=== PATIENT | male | born 1960 | race Caucasian/White ===

== ENCOUNTER 2017-06-23 15:42 | Inpatient (IN) | payer OTHER ==
[~2017-06-23] VITALS: Ht 185.4 cm; Wt 76.7 kg
[2017-06-23 16:47] LABS: Basophils # (auto) 0 uL; Basophils % (auto) 0.5 % (0.0-2.0); CONDITION Y; Eosinophils # (auto) 0.1 uL; Eosinophils % (auto) 0.7 % (0.0-7.0); Hematocrit 42.5 % (41.0-53.0); Hemoglobin 14.7 g/dL (13.5-17.5); Lymphocytes # (auto) 1.3 uL; Lymphocytes % (auto) 18.3 % (10.0-50.0); Mean Corpuscular Hemoglobin 32.9 pg (28.0-32.0); Mean Corpuscular Hgb Conc. 34.6 g/dL (32.0-36.0); Mean Corpuscular Volume 95.2 fL (80.0-100.0); Mean Platelet Volume 7.8 fL (7.4-10.4); Monocytes # (auto) 0.7 uL; Monocytes % (auto) 10.3 % (0.0-12.0); Neutrophils % (auto) 70.2 % (37.0-80.0); Platelet Count (auto) 231 10^3/uL (140-450); Red Cell Distribution Width 12.7 % (11.6-16.0); White Blood Cell 7.1 10^3/uL (4.4-10.8)
[2017-06-23 17:12] LABS: Albumin 3.7 g/dL (3.4-5.0); Bilirubin, Total 0.5 mg/dL (0.2-1.0); Calcium 8.6 mg/dL (8.5-10.1); Magnesium 2.6 mg/dL (1.6-2.6); Potassium 3.8 mmol/L (3.5-5.1); Total Protein 6.8 g/dL (6.4-8.2)
[2017-06-23] MEDS ORDERED: SODIUM CHLORIDE 0.9% 1,000 ML IV ONE (19:04)
[2017-06-23] MEDS ORDERED: METOPROLOL TARTRATE 25 MG TAB PO ONE (19:15)
[2017-06-23] MEDS ORDERED: LORazepam 2MG/ML-1ML VIAL IV ONE (19:15)
[2017-06-23] MEDS ORDERED: LORazepam 0.5 MG TAB PO PRN (20:15)
[2017-06-23] MEDS ORDERED: NITROGLYCERIN 0.4 MG SL TAB SL PRN (20:15)
[2017-06-23] MEDS ORDERED: ACETAMINOPHEN 500 MG TAB PO PRN (20:15)
[2017-06-23] MEDS ORDERED: ONDANSETRON HCL 4 MG/2 ML VIAL IV PRN (20:15)
[2017-06-23] MEDS ORDERED: LACTULOSE 20Gm/30ML SOLN PO PRN (20:15)
[2017-06-23] MEDS ORDERED: MORPHINE SULF INJ 2 MG/ML SYRINGE 1ML IV PRN ×2 (20:15)
[2017-06-23] MEDS ORDERED: HYDROcodone-ACET 5/325MG TAB PO PRN (20:15)
[2017-06-23] MEDS ORDERED: TEMAZEPAM 15 MG CAP PO PRN (20:15)
[2017-06-23] MEDS: SODIUM CHLORIDE 0.9% 1,000 ML IV SCH (20:28)
[2017-06-23] MEDS ORDERED: ASPirin 81 mg TAB PO ONE (20:30)
[2017-06-23] MEDS ORDERED: TAMSULOSIN HYDROCHLORIDE 0.4 MG CAP PO ONE (20:45)
[2017-06-23 20:53] LABS: Cholesterol 166 mg/dL (< 200); HDL Cholesterol 56 mg/dL (40-59); LDL Cholesterol 103 mg/dL (< 100); Triglycerides 102 mg/dL (< 150)
[2017-06-23] MEDS: ATORVASTATIN 20 MG TAB PO SCH (22:30)
[2017-06-24] VITALS (7 sets, daily range): BP systolic 103–127; BP diastolic 60–87
[2017-06-24 06:16] LABS: BUN/Creatinine Ratio 21.3; Calcium 8.3 mg/dL (8.5-10.1); Potassium 3.7 mmol/L (3.5-5.1)
[2017-06-24 06:21] LABS: Basophils # (auto) 0 uL; Basophils % (auto) 0.4 % (0.0-2.0); CONDITION Y; Eosinophils # (auto) 0.2 uL; Eosinophils % (auto) 3.5 % (0.0-7.0); Hematocrit 39.1 % (41.0-53.0); Hemoglobin 13.4 g/dL (13.5-17.5); Lymphocytes # (auto) 2.4 uL; Lymphocytes % (auto) 39.1 % (10.0-50.0); Mean Corpuscular Hgb Conc. 34.2 g/dL (32.0-36.0); Mean Corpuscular Volume 96.5 fL (80.0-100.0); Mean Platelet Volume 8.2 fL (7.4-10.4); Monocytes # (auto) 0.6 uL; Monocytes % (auto) 9.9 % (0.0-12.0); Neutrophils # (auto) 2.9 uL; Neutrophils % (auto) 47.1 % (37.0-80.0); Platelet Count (auto) 222 10^3/uL (140-450); Red Cell Distribution Width 12.9 % (11.6-16.0); White Blood Cell 6.1 10^3/uL (4.4-10.8)
[2017-06-24] MEDS: ASPirin 81 mg TAB PO SCH (10:22)
[2017-06-24 11:53] LABS: Prothrombin Time 10.9 sec (9.37-12.3)
[2017-06-24] MEDS: SODIUM CHLORIDE 0.9% 1,000 ML IV SCH (12:12)
[2017-06-24] MEDS ORDERED: TAMSULOSIN HYDROCHLORIDE 0.4 MG CAP PO SCH (18:00)
[2017-06-24] MEDS: ATORVASTATIN 20 MG TAB PO SCH (23:24)
[2017-06-25 05:00] VITALS: BP 109/63
[2017-06-25] MEDS: SODIUM CHLORIDE 0.9% 1,000 ML IV SCH (05:52)
[2017-06-25] MEDS ORDERED: LIDOCAINE 2%HCL (LOCAL ANESTH.) INJ 20ML MDV ONE (07:33)
[2017-06-25] MEDS ORDERED: IOHEXOL 350 MG/ML 100ML IJ ONE (07:33)
[2017-06-25 07:49] VITALS: BP 112/55
[2017-06-25] MEDS ORDERED: MIDAZOLAM HCL 1MG/1ML-2 ML VIAL ONE (09:37)
[2017-06-25] MEDS ORDERED: fentaNYL CITRATE 100 MCG/2 ML VL ONE (09:37)
[2017-06-25] MEDS ORDERED: ANGIOMAX 250 MG VIAL IV ONE (09:37)
[2017-06-25] MEDS ORDERED: SODIUM CHL 0.9% 0 ML ONE (09:38)
[2017-06-25] MEDS: ASPirin 81 mg TAB PO SCH (10:00)
[2017-06-25 13:58] VITALS: BP 103/70
== END 2017-06-25 15:30 | disposition home or self-care (01) | DRG 287 ==
LOC: ER 15:46 → TELE 15:47 → TELE-EAST 23:40
PROVIDERS: ADMIT Internal Medicine; ATTEND Internal Medicine
PROC: 4A023N7 Measurement of Cardiac Sampling and Pressure, Left Heart, Percutaneous Approach (ICD-10-PCS; principal; 2017-06-25)
PROC: B2111ZZ Fluoroscopy of Multiple Coronary Arteries using Low Osmolar Contrast (ICD-10-PCS; 2017-06-25)
PROC: B2151ZZ Fluoroscopy of Left Heart using Low Osmolar Contrast (ICD-10-PCS; 2017-06-25)
DX: I47.1 Supraventricular tachycardia (principal); I10 Essential (primary) hypertension; N40.0 Benign prostatic hyperplasia without lower urinary tract symptoms; I20.9 Angina pectoris, unspecified; Z60.2 Problems related to living alone; E78.5 Hyperlipidemia, unspecified; F17.210 Nicotine dependence, cigarettes, uncomplicated; Z79.82 Long term (current) use of aspirin; Z86.73 Personal history of transient ischemic attack (TIA), and cerebral infarction without residual deficits; Z87.442 Personal history of urinary calculi
CPT/HCPCS: 36415; 71010; 80048; 80053; 80061; 82550; 83735; 84484; 85025; 85379; 85610; 85652; 86141; 93005; 93306; 93452; 96361; 96374; 99152; J2250; J2405

== ENCOUNTER → 2023-01-01 | Outpatient (CLI) | payer OTHER ==
[2023-01-01 09:50] LABS: Basophils # (auto) 0 10 ^3/uL (0-0.2); Basophils % (auto) 0.7 % (0.0-2.0); Eosinophils # (auto) 0.4 10 ^3/uL (0-0.8); Eosinophils % (auto) 8.5 % (0.0-7.0); Hemoglobin 14.8 g/dL (13.5-17.5); Lymphocytes # (auto) 1.2 10 ^3/uL (0.4-5.4); Lymphocytes % (auto) 23.3 % (10.0-50.0); Mean Corpuscular Hemoglobin 32.7 pg (28.0-32.0); Mean Corpuscular Hgb Conc. 34.4 g/dL (32.0-36.0); Mean Corpuscular Volume 94.9 fL (80.0-100.0); Monocytes # (auto) 0.5 10 ^3/uL (0-1.3); Monocytes % (auto) 10.4 % (0.0-12.0); Neutrophils # (auto) 2.9 10 ^3/uL (1.6-8.6); Neutrophils % (auto) 57.1 % (37.0-80.0); Nucleated Red Blood Cells % 0.2 %; Red Blood Cells 4.53 10^6/uL (4.5-5.90); White Blood Cell 5.1 10^3/uL (4.4-10.8)
[2023-01-01 10:08] LABS: Albumin 3.5 g/dL (3.4-5.0); Calcium 8.6 mg/dL (8.5-10.1); Potassium 4.1 mmol/L (3.5-5.1)
[2023-01-01 10:13] LABS: BUN/Creatinine Ratio 22.4; Bilirubin, Total 0.5 mg/dL (0.2-1.0); Total Protein 6.7 g/dL (6.4-8.2)
== END | disposition home or self-care (01) ==
LOC: LAB 09:13
PROVIDERS: ATTEND Internal Medicine
DX: I10 Essential (primary) hypertension (principal); E55.9 Vitamin D deficiency, unspecified; N40.0 Benign prostatic hyperplasia without lower urinary tract symptoms; E78.5 Hyperlipidemia, unspecified
CPT/HCPCS: 36415; 80053; 80061; 82306; 83036; 84153; 84443; 85025

== ENCOUNTER → 2023-03-02 | Outpatient (CLI) | payer OTHER ==
[2023-03-03 09:41] LABS: Urine Bacteria NONE SEEN /hpf (None Seen); Urine Blood 1+ /uL (Negative); Urine Mucus FEW (None Seen); Urine Specific Gravity 1.022 (1.001-1.035); Urine WBC 1 /hpf (0 - 3)
== END | disposition home or self-care (01) ==
LOC: LAB 16:07
PROVIDERS: ATTEND Urology
DX: N39.0 Urinary tract infection, site not specified (principal)
CPT/HCPCS: 81001; 87086; 87088; 87186

== ENCOUNTER → 2023-03-09 | Outpatient (CLI) | payer OTHER ==
[2023-03-09 09:11] LABS: Urine Bacteria NONE SEEN /hpf (None Seen); Urine Blood TRACE /uL (Negative); Urine Mucus FEW (None Seen); Urine Specific Gravity 1.024 (1.001-1.035); Urine WBC 1 /hpf (0 - 3)
== END | disposition home or self-care (01) ==
LOC: LAB 08:49
PROVIDERS: ATTEND Urology
DX: N39.0 Urinary tract infection, site not specified (principal)
CPT/HCPCS: 81001; 87086

== ENCOUNTER → 2023-05-19 | Outpatient (CLI) | payer OTHER ==
[~2023-05-19] VITALS: Ht 185.4 cm; Wt 72.1 kg
[~2023-05-19] MED LIST: ASPI1TAB20 PO; ATOR10TA52 PO; CHOL20007 OR; DILT-29 PO; DOCU-94 PO; DOXA1TAB84 PO; FLEC100T PO; GEMF-66 PO; MELO7.5T7 PO
== END | disposition home or self-care (01) ==
LOC: Rad HDHVI 13:23
PROVIDERS: ATTEND Internal Medicine Cardiovascular Disease
DX: Z01.810 Encounter for preprocedural cardiovascular examination (principal); I47.1 Supraventricular tachycardia; R07.89 Other chest pain; I10 Essential (primary) hypertension; E78.5 Hyperlipidemia, unspecified; R42 Dizziness and giddiness; F17.210 Nicotine dependence, cigarettes, uncomplicated; Z82.49 Family history of ischemic heart disease and other diseases of the circulatory system
CPT/HCPCS: 78452; 93017; 96374; A9500

== ENCOUNTER → 2023-06-15 | Outpatient (CLI) | payer OTHER | END | disposition home or self-care (01) | LOC: XYW 07:15 | PROVIDERS: ATTEND Urology | DX: C61 Malignant neoplasm of prostate (principal) | CPT/HCPCS: 78306; A9503 ==

== ENCOUNTER 2023-06-30 12:35 | Day surgery (SDC) | payer OTHER ==
[2023-06-28 14:53] LABS: Basophils # (auto) 0 10 ^3/uL (0-0.2); Basophils % (auto) 0.6 % (0.0-2.0); Eosinophils # (auto) 0.2 10 ^3/uL (0-0.8); Eosinophils % (auto) 3.1 % (0.0-7.0); Hematocrit 40.3 % (41.0-53.0); Hemoglobin 14.1 g/dL (13.5-17.5); Lymphocytes # (auto) 1.5 10 ^3/uL (0.4-5.4); Lymphocytes % (auto) 29.3 % (10.0-50.0); Mean Corpuscular Hemoglobin 33.1 pg (28.0-32.0); Mean Corpuscular Hgb Conc. 34.9 g/dL (32.0-36.0); Mean Corpuscular Volume 94.8 fL (80.0-100.0); Monocytes # (auto) 0.5 10 ^3/uL (0-1.3); Neutrophils # (auto) 2.9 10 ^3/uL (1.6-8.6); Nucleated Red Blood Cells % 0.2 %; Red Blood Cells 4.25 10^6/uL (4.5-5.90); White Blood Cell 5.1 10^3/uL (4.4-10.8)
[2023-06-28 15:11] LABS: INR 1.05 (0.9-1.15); Partial Thromboplastin Time 25.9 SEC (24.5-34.5)
[2023-06-28 15:15] LABS: Potassium 3.8 mmol/L (3.5-5.1)
[2023-06-28 15:20] LABS: Albumin 3.8 g/dL (3.4-5.0); Calcium 8.6 mg/dL (8.5-10.1)
[2023-06-28 15:22] LABS: Bilirubin, Total 0.6 mg/dL (0.2-1.0); Total Protein 6.9 g/dL (6.4-8.2)
[~2023-06-30] VITALS: Ht 185.4 cm; Wt 71.7 kg
[2023-06-30] MEDS ORDERED: SODIUM CHLORIDE LOCK 10 ML ONE (14:07)
[2023-06-30 15:15] VITALS: O2SAT 99
[2023-06-30] MEDS: fentaNYL CITRATE 100 MCG/2 ML VL ONE ×4 (15:20→15:38)
[2023-06-30] MEDS: diphenhdrAMINE HCL 50 MG/1 ML VL ONE ×2 (15:20→15:23)
[2023-06-30] MEDS: MIDAZOLAM HCL 5 MG/ML-1ML VIAL ONE ×3 (15:20→15:29)
[2023-06-30 15:52] VITALS: RESP 16; TEMP 98.7; O2SAT 99
[2023-06-30 16:35] VITALS: BP 141/93; PULSE 68; RESP 13; O2SAT 98
== END 2023-06-30 16:48 | disposition home or self-care (01) ==
LOC: GI 12:35
PROVIDERS: ATTEND Internal Medicine Gastroenterology
DX: R19.4 Change in bowel habit (principal); Q43.8 Other specified congenital malformations of intestine; K63.89 Other specified diseases of intestine; K64.8 Other hemorrhoids; K64.4 Residual hemorrhoidal skin tags
CPT/HCPCS: 36415; 45378; 80053; 85025; 85610; 85730; J1200; J2250; J3010; 99152; 99153

== ENCOUNTER 2023-07-29 10:08 | Emergency (ER) | payer OTHER ==
[~2023-07-29] VITALS: Ht 185.4 cm; Wt 70.0 kg
[2023-07-29 10:20] VITALS: PULSE 86; RESP 16; O2SAT 96
[2023-07-29 10:22] VITALS: BP 152/88; PULSE 86; RESP 16; O2SAT 96
[2023-07-29 10:44] LABS: Basophils # (auto) 0 10 ^3/uL (0-0.2); Basophils % (auto) 0.6 % (0.0-2.0); Eosinophils # (auto) 0.4 10 ^3/uL (0-0.8); Eosinophils % (auto) 5.9 % (0.0-7.0); Hemoglobin 14.6 g/dL (13.5-17.5); Lymphocytes # (auto) 1.3 10 ^3/uL (0.4-5.4); Lymphocytes % (auto) 19.5 % (10.0-50.0); Mean Corpuscular Hemoglobin 33.7 pg (28.0-32.0); Mean Corpuscular Hgb Conc. 35.7 g/dL (32.0-36.0); Mean Corpuscular Volume 94.5 fL (80.0-100.0); Monocytes # (auto) 0.5 10 ^3/uL (0-1.3); Monocytes % (auto) 7.9 % (0.0-12.0); Neutrophils # (auto) 4.3 10 ^3/uL (1.6-8.6); Neutrophils % (auto) 66.1 % (37.0-80.0); Red Blood Cells 4.34 10^6/uL (4.5-5.90); Red Cell Distribution Width 12.9 % (11.8-14.3); White Blood Cell 6.5 10^3/uL (4.4-10.8)
[2023-07-29 10:48] LABS: Urine Bacteria NONE SEEN /hpf (None Seen); Urine Blood TRACE /uL (Negative); Urine Clarity Clear (Clear); Urine Color Yellow (Yellow); Urine Protein, UAD Negative (Negative); Urine Specific Gravity 1.013 (1.001-1.035); Urine Urobilinogen Normal (Negative); Urine WBC 30 /hpf (0 - 3)
[2023-07-29 11:14] LABS: Alanine Aminotransferase 11 U/L (7-40); Alkaline Phosphatase 91 U/L (46-116); Anion Gap 5 (5-15); Aspartate Aminotransferase 13 U/L (13-40); BUN/Creatinine Ratio 18.4 (10.0-20.0); Blood Urea Nitrogen 14 mg/dL (9-23); Carbon Dioxide 25 mmol/L (20-30); Chloride 110 mmol/L (98-107); Glucose 112 mg/dL (74-106); Potassium 3.7 mmol/L (3.5-5.1); Sodium 140 mmol/L (136-145)
[2023-07-29 11:15] LABS: Albumin 4.3 g/dL (3.2-4.8); Bilirubin, Total 0.4 mg/dL (0.2-1.0); Total Protein 6.6 g/dL (5.7-8.2)
[2023-07-29] MEDS ORDERED: NITR-87 PO (11:35)
== END 2023-07-29 13:51 | disposition home or self-care (01) ==
LOC: EDBD 10:08 → ER 10:08
DX: H53.8 Other visual disturbances (principal); N39.0 Urinary tract infection, site not specified; R51.9 Headache, unspecified; H53.2 Diplopia; E78.5 Hyperlipidemia, unspecified; I10 Essential (primary) hypertension; Z87.442 Personal history of urinary calculi
CPT/HCPCS: 36415; 70450; 80053; 81001; 85025

== ENCOUNTER 2023-09-13 16:04 | Inpatient (IN) | payer OTHER ==
[~2023-09-13] VITALS: Ht 185.4 cm; Wt 63.5 kg
[~2023-09-13 16:04] MED LIST changes: +NITR-87 PO
[2023-09-13 16:39] LABS: Basophils # (auto) 0 10 ^3/uL (0-0.2); Basophils % (auto) 0.2 % (0.0-2.0); Eosinophils # (auto) 0 10 ^3/uL (0-0.8); Eosinophils % (auto) 0.3 % (0.0-7.0); Hematocrit 45.4 % (41.0-53.0); Hemoglobin 15.7 g/dL (13.5-17.5); Lymphocytes # (auto) 1.4 10 ^3/uL (0.4-5.4); Lymphocytes % (auto) 17.2 % (10.0-50.0); Mean Corpuscular Hemoglobin 32.7 pg (28.0-32.0); Mean Corpuscular Hgb Conc. 34.6 g/dL (32.0-36.0); Mean Corpuscular Volume 94.4 fL (80.0-100.0); Monocytes # (auto) 0.8 10 ^3/uL (0-1.3); Monocytes % (auto) 9.7 % (0.0-12.0); Neutrophils % (auto) 72.6 % (37.0-80.0); Nucleated Red Blood Cells % 0.2 %; Red Blood Cells 4.81 10^6/uL (4.5-5.90); Red Cell Distribution Width 12.7 % (11.8-14.3); White Blood Cell 8.2 10^3/uL (4.4-10.8)
[2023-09-13 16:53] LABS: INR 1.01 (0.9-1.15); Partial Thromboplastin Time 25.7 SEC (24.5-34.5); Prothrombin Time 10.6 sec (9.3-11.8)
[2023-09-13 17:11] LABS: Alanine Aminotransferase 21 U/L (7-40); Albumin 4.4 g/dL (3.2-4.8); Alkaline Phosphatase 98 U/L (46-116); Anion Gap 8 (5-15); Aspartate Aminotransferase 28 U/L (13-40); BUN/Creatinine Ratio 12.9 (10.0-20.0); Bilirubin, Total 0.8 mg/dL (0.2-1.0); Blood Urea Nitrogen 13 mg/dL (9-23); Calcium 9.7 mg/dL (8.7-10.4); Carbon Dioxide 24 mmol/L (20-30); Chloride 107 mmol/L (98-107); Glucose 100 mg/dL (74-106); Potassium 3.8 mmol/L (3.5-5.1); Sodium 139 mmol/L (136-145)
[2023-09-13] MEDS ORDERED: NITROGLYCERIN 2% OINT 1GM PKG TD ONE (18:00)
[2023-09-13] MEDS ORDERED: ASPirin-EC 81 mg tab PO ONE (18:00)
[2023-09-13 18:04] VITALS: PULSE 83; RESP 13; O2SAT 100
[2023-09-13] MEDS ORDERED: MORPHINE SULFATE 4 MG/ML SYR/VIAL IV ONE (18:15)
[2023-09-13 19:30] VITALS: PULSE 55; RESP 16; O2SAT 99
[2023-09-13] MEDS ORDERED: ENOXAPARIN SOD 80 MG/0.8ML SYRINGE SC ONE (20:00)
[2023-09-13] MEDS ORDERED: MORPHINE SULFATE INJ 2 MG/ml SYRG IV PRN (22:45)
[2023-09-13] MEDS ORDERED: NITROGLYCERIN 0.4 MG SL TAB SL PRN (22:45)
[2023-09-13] MEDS ORDERED: ONDANSETRON HCL 4 MG/2 ML VIAL IV PRN (22:45)
[2023-09-13] MEDS ORDERED: HYDROcodone-ACET 5/325MG TAB PO PRN (22:45)
[2023-09-13] MEDS ORDERED: TEMAZEPAM 15 MG CAP PO PRN (22:45)
[2023-09-13] MEDS ORDERED: ACETAMINOPHEN 325 MG TAB PO PRN (22:45)
[2023-09-14 05:26] LABS: Basophils # (auto) 0 10 ^3/uL (0-0.2); Basophils % (auto) 0.5 % (0.0-2.0); Eosinophils # (auto) 0.2 10 ^3/uL (0-0.8); Eosinophils % (auto) 2.8 % (0.0-7.0); Hematocrit 41.5 % (41.0-53.0); Hemoglobin 14.4 g/dL (13.5-17.5); Lymphocytes # (auto) 2.5 10 ^3/uL (0.4-5.4); Lymphocytes % (auto) 34.5 % (10.0-50.0); Mean Corpuscular Hemoglobin 33.1 pg (28.0-32.0); Mean Corpuscular Hgb Conc. 34.7 g/dL (32.0-36.0); Mean Corpuscular Volume 95.4 fL (80.0-100.0); Monocytes # (auto) 0.8 10 ^3/uL (0-1.3); Monocytes % (auto) 10.6 % (0.0-12.0); Neutrophils # (auto) 3.7 10 ^3/uL (1.6-8.6); Neutrophils % (auto) 51.6 % (37.0-80.0); Nucleated Red Blood Cells % 0.1 %; Red Blood Cells 4.35 10^6/uL (4.5-5.90); Red Cell Distribution Width 13.1 % (11.8-14.3); White Blood Cell 7.2 10^3/uL (4.4-10.8)
[2023-09-14 05:30] LABS: Chloride 108 mmol/L (98-107); Potassium 3.6 mmol/L (3.5-5.1); Sodium 141 mmol/L (136-145)
[2023-09-14 05:31] LABS: Anion Gap 8 (5-15); Calcium 8.7 mg/dL (8.7-10.4); Carbon Dioxide 25 mmol/L (20-30)
[2023-09-14 05:36] LABS: BUN/Creatinine Ratio 14.3 (10.0-20.0); Blood Urea Nitrogen 11 mg/dL (9-23); Glucose 83 mg/dL (74-106)
[2023-09-14 05:47] LABS: Urine Bacteria NONE SEEN /hpf (None Seen); Urine Blood 3+ /uL (Negative); Urine Clarity Clear (Clear); Urine Color PINK (Yellow); Urine Protein, UAD 1+ (Negative); Urine Specific Gravity 1.034 (1.001-1.035); Urine Urobilinogen Normal (Negative); Urine WBC 5 /hpf (0 - 3); Urine pH 7.5 (5.0-8.0)
[2023-09-14 08:00] VITALS: PULSE 52; RESP 14; O2SAT 98
[2023-09-14 08:36] LABS: Triglycerides 74 mg/dL (< 150)
[2023-09-14 08:37] LABS: LDL Cholesterol 94 mg/dL (< 100)
[2023-09-14 08:38] LABS: Cholesterol 170 mg/dL (< 200); HDL Cholesterol 61 mg/dL (40-59)
[2023-09-14] MEDS ORDERED: ASPirin 81 mg TAB PO SCH (10:00)
[2023-09-14] MEDS ORDERED: PANTOPRAZOLE 40 MG/10 ML VIAL INJ IV SCH (10:00)
[2023-09-14] MEDS: ENOXAPARIN SOD 40 MG/0.4 ML SYRINGE SC SCH (10:32)
[2023-09-14] MEDS: ASPirin 81 mg TAB PO SCH (10:32)
[2023-09-14] MEDS: LISINOPRIL 10 MG TAB PO SCH (10:32)
[2023-09-14] MEDS: GEMFIBROZIL 600 MG TAB PO SCH (10:32)
[2023-09-14] MEDS: dilTIAZem HCL 60 MG TAB PO SCH ×2 (10:38→22:00)
[2023-09-14] MEDS ORDERED: PANTOPRAZOLE 40 MG TAB PO ONE (11:30)
[2023-09-14 11:36] LABS: Amphetamine Screen, Urine Neg (NEGATIVE); Barbiturate Scree,Urine Neg (NEGATIVE); Benzodiazephine Screen, Urine Neg (NEGATIVE); Cocaine Screen, Urine Neg (NEGATIVE); Opiate Scree,Urine Pos (NEGATIVE)
[2023-09-14 11:37] LABS: Cannabinoid Screen, Urine Neg (NEGATIVE); Phencyclidine Screen, Urine Neg (NEGATIVE)
[2023-09-14] MEDS ORDERED: MIDAZOLAM DRIP 50 mg/50mL 50 ML IV SCH (12:00)
[2023-09-14] MEDS ORDERED: DILT60TA PO (13:20)
[2023-09-14] MEDS: HCTZ 25 MG TAB PO SCH (14:09)
[2023-09-14] MEDS: FLECAINIDE ACETATE 50 MG TAB PO SCH ×2 (14:10→23:27)
[2023-09-14 19:37] VITALS: PULSE 63; RESP 13; O2SAT 99
[2023-09-14] MEDS ORDERED: LACTULOSE 20Gm/30ML SOLN PO ONE (21:15)
[2023-09-14] MEDS: PANTOPRAZOLE 40 MG TAB PO SCH (22:00)
[2023-09-14] MEDS ORDERED: ATORVASTATIN 20 MG TAB PO SCH ×2 (22:00)
[2023-09-14] MEDS ORDERED: dilTIAZem HCL 60 MG TAB PO SCH (22:00)
[2023-09-14] MEDS: SUCRALFATE 1 GM/10 ML ORAL SUSP PO SCH (23:25)
[2023-09-15] MEDS: SUCRALFATE 1 GM/10 ML ORAL SUSP PO SCH ×3 (06:44→17:26)
[2023-09-15 07:30] VITALS: PULSE 49; RESP 19; O2SAT 97
[2023-09-15 08:03] LABS: Basophils # (auto) 0 10 ^3/uL (0-0.2); Basophils % (auto) 0.3 % (0.0-2.0); Eosinophils # (auto) 0.2 10 ^3/uL (0-0.8); Eosinophils % (auto) 2.9 % (0.0-7.0); Hematocrit 48.2 % (41.0-53.0); Hemoglobin 16.6 g/dL (13.5-17.5); Lymphocytes # (auto) 1.5 10 ^3/uL (0.4-5.4); Lymphocytes % (auto) 22.8 % (10.0-50.0); Mean Corpuscular Hemoglobin 33.1 pg (28.0-32.0); Mean Corpuscular Hgb Conc. 34.4 g/dL (32.0-36.0); Mean Corpuscular Volume 96.4 fL (80.0-100.0); Monocytes # (auto) 0.6 10 ^3/uL (0-1.3); Monocytes % (auto) 9.4 % (0.0-12.0); Neutrophils # (auto) 4.2 10 ^3/uL (1.6-8.6); Neutrophils % (auto) 64.6 % (37.0-80.0); Nucleated Red Blood Cells % 0.1 %; Red Cell Distribution Width 13.3 % (11.8-14.3); White Blood Cell 6.6 10^3/uL (4.4-10.8)
[2023-09-15 08:05] LABS: Chloride 104 mmol/L (98-107); Potassium 4.3 mmol/L (3.5-5.1); Sodium 140 mmol/L (136-145)
[2023-09-15 08:06] LABS: Anion Gap 6 (5-15); Calcium 9.6 mg/dL (8.5-10.1); Carbon Dioxide 30 mmol/L (20-30)
[2023-09-15 08:11] LABS: Blood Urea Nitrogen 15 mg/dL (9-23); Glucose 104 mg/dL (74-106)
[2023-09-15] MEDS ORDERED: dilTIAZem HCL 60 MG TAB PO SCH (10:00)
[2023-09-15] MEDS: ENOXAPARIN SOD 40 MG/0.4 ML SYRINGE SC SCH (10:30)
[2023-09-15] MEDS: GEMFIBROZIL 600 MG TAB PO SCH (10:30)
[2023-09-15] MEDS: HCTZ 25 MG TAB PO SCH (10:31)
[2023-09-15] MEDS: LISINOPRIL 10 MG TAB PO SCH (10:32)
[2023-09-15] MEDS: ASPirin 81 mg TAB PO SCH (10:32)
[2023-09-15] MEDS: PANTOPRAZOLE 40 MG TAB PO SCH (10:36)
[2023-09-15] MEDS: FLECAINIDE ACETATE 50 MG TAB PO SCH (10:46)
[2023-09-15 11:36] VITALS: BP_SYST 112; BP_SYST 114; BP_SYST 119; BP_DIAS 62; BP_DIAS 70; BP_DIAS 72; PULSE 54; PULSE 69; RESP 17; RESP 18; TEMP 97.5; TEMP 98; O2SAT 97; O2SAT 98
[2023-09-15 13:00] VITALS: BP 114/70; PULSE 69; RESP 17; TEMP 97.5; O2SAT 97
[2023-09-15] MEDS ORDERED: MILK OF MAGNESIA 30ML SUSP PO ONE (15:15)
[2023-09-15 16:04] VITALS: BP 114/70; PULSE 69; RESP 17; TEMP 97.5; O2SAT 97
[2023-09-15 17:00] VITALS: BP 109/69; PULSE 63; RESP 17; TEMP 98.2; O2SAT 97
[2023-09-15] MEDS ORDERED: SENNA 8.6 MG TAB PO SCH (22:00)
== END 2023-09-15 17:48 | disposition home or self-care (01) | DRG 281 ==
LOC: ER 16:04 → TELE 22:43 → TELE-EAST 09-15 10:55
PROVIDERS: ADMIT Internal Medicine
DX: I25.110 Atherosclerotic heart disease of native coronary artery with unstable angina pectoris (principal); I21.A1 Myocardial infarction type 2; I47.10 Supraventricular tachycardia, unspecified; I10 Essential (primary) hypertension; K20.90 Esophagitis, unspecified without bleeding; I71.21 Aneurysm of the ascending aorta, without rupture; N40.0 Benign prostatic hyperplasia without lower urinary tract symptoms; K59.00 Constipation, unspecified; F17.210 Nicotine dependence, cigarettes, uncomplicated; C61 Malignant neoplasm of prostate; E03.9 Hypothyroidism, unspecified; Z85.46 Personal history of malignant neoplasm of prostate; Z87.442 Personal history of urinary calculi; Z79.82 Long term (current) use of aspirin; Z79.899 Other long term (current) drug therapy; Z80.42 Family history of malignant neoplasm of prostate
CPT/HCPCS: 36415; 71045; 71275; 80048; 80053; 80061; 80307; 81001; 83735; 83880; 84436; 84443; 84481; 84484; 85025; 85379; 85610; 85730; 93005; 99291; C9113; G0378

== ENCOUNTER 2023-09-16 11:05 | Inpatient (IN) | payer OTHER ==
[~2023-09-16] VITALS: Ht 182.9 cm; Wt 69.0 kg
[~2023-09-16 11:05] MED LIST changes: +DILT60TA PO
[2023-09-16] MEDS ORDERED: DEXTROSE (50%) 50ML SYRG IV ONE (11:30)
[2023-09-16] MEDS ORDERED: SODIUM CHLORIDE 0.9% 1,000 ML IV ONE (11:30)
[2023-09-16 11:59] LABS: Basophils # (auto) 0 10 ^3/uL (0-0.2); Basophils % (auto) 0.1 % (0.0-2.0); Eosinophils # (auto) 0 10 ^3/uL (0-0.8); Eosinophils % (auto) 0.1 % (0.0-7.0); Hematocrit 44.3 % (41.0-53.0); Hemoglobin 15.6 g/dL (13.5-17.5); Lymphocytes # (auto) 0.8 10 ^3/uL (0.4-5.4); Lymphocytes % (auto) 8.6 % (10.0-50.0); Mean Corpuscular Hemoglobin 33.6 pg (28.0-32.0); Mean Corpuscular Hgb Conc. 35.3 g/dL (32.0-36.0); Mean Corpuscular Volume 95.2 fL (80.0-100.0); Monocytes # (auto) 0.9 10 ^3/uL (0-1.3); Monocytes % (auto) 9.7 % (0.0-12.0); Neutrophils # (auto) 7.4 10 ^3/uL (1.6-8.6); Neutrophils % (auto) 81.5 % (37.0-80.0); Red Blood Cells 4.66 10^6/uL (4.5-5.90); Red Cell Distribution Width 12.9 % (11.8-14.3); White Blood Cell 9.1 10^3/uL (4.4-10.8)
[2023-09-16 12:08] VITALS: PULSE 57; RESP 15; O2SAT 99
[2023-09-16 12:15] LABS: INR 1.01 (0.9-1.15); Partial Thromboplastin Time 23.2 SEC (24.5-34.5); Prothrombin Time 10.6 sec (9.3-11.8)
[2023-09-16 12:57] LABS: Alanine Aminotransferase 17 U/L (7-40); Albumin 4.4 g/dL (3.2-4.8); Alkaline Phosphatase 96 U/L (46-116); Anion Gap 10 (5-15); Aspartate Aminotransferase 21 U/L (13-40); BUN/Creatinine Ratio 10.1 (10.0-20.0); Bilirubin, Total 0.9 mg/dL (0.2-1.0); Blood Urea Nitrogen 20 mg/dL (9-23); Calcium 9.5 mg/dL (8.7-10.4); Carbon Dioxide 25 mmol/L (20-30); Chloride 103 mmol/L (98-107); Glucose 122 mg/dL (74-106); Magnesium 2.5 mg/dL (1.6-2.6); Potassium 4.1 mmol/L (3.5-5.1); Sodium 138 mmol/L (136-145); Total Protein 6.8 g/dL (5.7-8.2)
[2023-09-16] MEDS ORDERED: ASPirin 325 MG TAB PO ONE (13:00)
[2023-09-16] MEDS ORDERED: ACETAMINOPHEN 325 MG TAB PO PRN (14:30)
[2023-09-16] MEDS ORDERED: NITROGLYCERIN 0.4 MG SL TAB SL PRN (14:30)
[2023-09-16] MEDS ORDERED: DOCUSATE SOD 100 MG CAP PO PRN (14:30)
[2023-09-16] MEDS ORDERED: MORPHINE SULFATE INJ 2 MG/ml SYRG IV PRN (14:30)
[2023-09-16] MEDS ORDERED: ONDANSETRON HCL 4 MG/2 ML VIAL IV PRN (14:30)
[2023-09-16] MEDS: SODIUM CHLORIDE 0.9% 1,000 ML IV SCH ×2 (14:58→23:24)
[2023-09-16 20:00] VITALS: PULSE 81; RESP 15; O2SAT 97
[2023-09-16 22:00] VITALS: BP 98/55; PULSE 66; RESP 17; TEMP 97.9; O2SAT 94
[2023-09-16] MEDS: dilTIAZem HCL 60 MG TAB PO SCH (22:00)
[2023-09-16] MEDS: FLECAINIDE ACETATE 50 MG TAB PO SCH (22:00)
[2023-09-16] MEDS ORDERED: dilTIAZem HCL 60 MG TAB PO SCH (22:00)
[2023-09-16] MEDS: ATORVASTATIN 20 MG TAB PO SCH (23:22)
[2023-09-16 23:26] VITALS: BP 98/56; PULSE 62; PULSE 70; RESP 20; TEMP 98.6; O2SAT 95; O2SAT 96
[2023-09-17] VITALS (13 sets, daily range): BP systolic 99–119; BP diastolic 64–78; PULSE 54–66; RESP 15–18; TEMP 36.6; O2SAT 92–99
[2023-09-17 06:06] LABS: Basophils # (auto) 0 10 ^3/uL (0-0.2); Basophils % (auto) 0.4 % (0.0-2.0); Eosinophils # (auto) 0.3 10 ^3/uL (0-0.8); Eosinophils % (auto) 3.9 % (0.0-7.0); Hematocrit 40.2 % (41.0-53.0); Hemoglobin 13.8 g/dL (13.5-17.5); Lymphocytes % (auto) 28.1 % (10.0-50.0); Mean Corpuscular Hemoglobin 33.3 pg (28.0-32.0); Mean Corpuscular Hgb Conc. 34.3 g/dL (32.0-36.0); Mean Corpuscular Volume 97.1 fL (80.0-100.0); Monocytes # (auto) 0.8 10 ^3/uL (0-1.3); Neutrophils # (auto) 3.9 10 ^3/uL (1.6-8.6); Neutrophils % (auto) 56.6 % (37.0-80.0); Red Blood Cells 4.14 10^6/uL (4.5-5.90); Red Cell Distribution Width 12.5 % (11.8-14.3)
[2023-09-17 06:28] LABS: Alanine Aminotransferase 12 U/L (7-40); Albumin 3.6 g/dL (3.2-4.8); Alkaline Phosphatase 86 U/L (46-116); Anion Gap 7 (5-15); Aspartate Aminotransferase 18 U/L (13-40); Blood Urea Nitrogen 18 mg/dL (9-23); Calcium 8.9 mg/dL (8.7-10.4); Carbon Dioxide 25 mmol/L (20-30); Chloride 106 mmol/L (98-107); Glucose 93 mg/dL (74-106); Potassium 4.1 mmol/L (3.5-5.1); Sodium 138 mmol/L (136-145)
[2023-09-17 06:29] LABS: Bilirubin, Total 0.6 mg/dL (0.2-1.0); Total Protein 5.6 g/dL (5.7-8.2)
[2023-09-17] MEDS: SODIUM CHLORIDE 0.9% 1,000 ML IV SCH (06:56)
[2023-09-17] MEDS ORDERED: ADENOSINE 58 MG in GIVE UN-DILUTED 0 ML IV ONE (07:45)
[2023-09-17] MEDS ORDERED: ASPirin-EC 81 mg tab PO SCH (10:00)
[2023-09-17] MEDS: ENOXAPARIN SOD 40 MG/0.4 ML SYRINGE SC SCH (10:23)
[2023-09-17] MEDS: GEMFIBROZIL 600 MG TAB PO SCH (10:23)
[2023-09-17] MEDS: FLECAINIDE ACETATE 50 MG TAB PO SCH ×2 (10:24→21:49)
[2023-09-17] MEDS: dilTIAZem HCL 60 MG TAB PO SCH ×2 (10:51→21:49)
[2023-09-17] MEDS ORDERED: ASPirin 81 mg TAB PO ONE (12:45)
[2023-09-17] MEDS ORDERED: IODIXANOL 320MG/ML 100ML BTL IV ONE ×2 (14:00→14:22)
[2023-09-17] MEDS ORDERED: HEPARIN SODIUM (PORCINE) 5000 UNITS/ML 1ML VIAL ONE (14:15)
[2023-09-17] MEDS ORDERED: MIDAZOLAM HCL 2MG/2ML 2ml VIAL (1mg/ml) ONE (14:15)
[2023-09-17] MEDS ORDERED: ANGIOMAX 250 MG VIAL IV ONE (14:15)
[2023-09-17] MEDS ORDERED: VERAPAMIL 2.5MG/ML INJ 2ML VIAL IV ONE (14:15)
[2023-09-17] MEDS ORDERED: fentaNYL CITRATE 100 MCG/2 ML VL ONE (14:15)
[2023-09-17] MEDS ORDERED: SODIUM CHL 0.9% 0 ML ONE (14:16)
[2023-09-17] MEDS ORDERED: LIDOCAINE 2%HCL (LOCAL ANESTH.) INJ 20ML MDV ONE (14:21)
[2023-09-17] MEDS ORDERED: NICOTINE 21MG/24 HR TOPICAL PATCH TD ONE (15:15)
[2023-09-17 17:18] LABS: Cortisol,PM 7.1 ug/dL (3.44-16.76)
[2023-09-17 17:21] LABS: Free T3 2.89 pg/mL (2.3-4.2); Free T4 (Free Thyroxine) 0.9 ng/dL (0.89-1.76)
[2023-09-17] MEDS ORDERED: LORazepam 2MG/ML-1ML VIAL IV PRN (20:45)
[2023-09-17] MEDS: ATORVASTATIN 20 MG TAB PO SCH (21:43)
[2023-09-18] VITALS (8 sets, daily range): BP systolic 113–146; BP diastolic 70–89; PULSE 54–76; RESP 18; TEMP 36.2; O2SAT 95–98
[2023-09-18 05:56] LABS: Chloride 104 mmol/L (98-107); Potassium 4.1 mmol/L (3.5-5.1); Sodium 137 mmol/L (136-145)
[2023-09-18 05:57] LABS: Anion Gap 4 (5-15); Carbon Dioxide 29 mmol/L (20-30)
[2023-09-18 06:02] LABS: BUN/Creatinine Ratio 16.1 (10.0-20.0); Blood Urea Nitrogen 14 mg/dL (9-23); Glucose 84 mg/dL (74-106)
[2023-09-18] MEDS: GEMFIBROZIL 600 MG TAB PO SCH (08:43)
[2023-09-18] MEDS: FLECAINIDE ACETATE 50 MG TAB PO SCH ×2 (08:45→21:47)
[2023-09-18] MEDS: ASPirin 81 mg TAB PO SCH (08:46)
[2023-09-18] MEDS: NICOTINE 21MG/24 HR TOPICAL PATCH TD SCH (08:47)
[2023-09-18] MEDS: ENOXAPARIN SOD 40 MG/0.4 ML SYRINGE SC SCH (08:47)
[2023-09-18] MEDS: dilTIAZem HCL 60 MG TAB PO SCH ×2 (09:13→21:46)
[2023-09-18] MEDS: ATORVASTATIN 20 MG TAB PO SCH (21:47)
[2023-09-18] MEDS: Ensure Enlive Vanilla 8oz Bottle PO SCH (21:47)
[2023-09-19 04:40] VITALS: BP 127/80; PULSE 67; RESP 18; TEMP 97.5; O2SAT 96
[2023-09-19 05:54] LABS: Basophils # (auto) 0 10 ^3/uL (0-0.2); Basophils % (auto) 0.5 % (0.0-2.0); Eosinophils # (auto) 0.3 10 ^3/uL (0-0.8); Eosinophils % (auto) 5.7 % (0.0-7.0); Hematocrit 41.8 % (41.0-53.0); Hemoglobin 14.4 g/dL (13.5-17.5); Lymphocytes # (auto) 1.3 10 ^3/uL (0.4-5.4); Lymphocytes % (auto) 22.8 % (10.0-50.0); Mean Corpuscular Hemoglobin 32.9 pg (28.0-32.0); Mean Corpuscular Hgb Conc. 34.4 g/dL (32.0-36.0); Mean Corpuscular Volume 95.6 fL (80.0-100.0); Monocytes # (auto) 0.7 10 ^3/uL (0-1.3); Monocytes % (auto) 11.7 % (0.0-12.0); Neutrophils # (auto) 3.4 10 ^3/uL (1.6-8.6); Neutrophils % (auto) 59.3 % (37.0-80.0); Red Blood Cells 4.37 10^6/uL (4.5-5.90); Red Cell Distribution Width 12.3 % (11.8-14.3); White Blood Cell 5.8 10^3/uL (4.4-10.8)
[2023-09-19 06:07] LABS: Albumin 4.1 g/dL (3.2-4.8); Alkaline Phosphatase 93 U/L (46-116); Anion Gap 8 (5-15); Aspartate Aminotransferase 14 U/L (13-40); Bilirubin, Total 0.6 mg/dL (0.2-1.0); Blood Urea Nitrogen 17 mg/dL (9-23); Calcium 9.6 mg/dL (8.7-10.4); Carbon Dioxide 26 mmol/L (20-30); Chloride 105 mmol/L (98-107); Glucose 92 mg/dL (74-106); Potassium 4.4 mmol/L (3.5-5.1); Sodium 139 mmol/L (136-145)
[2023-09-19 06:08] LABS: Total Protein 6.4 g/dL (5.7-8.2)
[2023-09-19 06:09] LABS: Alanine Aminotransferase < 9 U/L (7-40)
[2023-09-19 08:00] VITALS: PULSE 61; PULSE 67; RESP 18
[2023-09-19 09:07] VITALS: BP 117/66; PULSE 55; RESP 18; TEMP 97.9; O2SAT 97
[2023-09-19] MEDS: ASPirin 81 mg TAB PO SCH (09:54)
[2023-09-19] MEDS: FLECAINIDE ACETATE 50 MG TAB PO SCH (09:54)
[2023-09-19] MEDS: GEMFIBROZIL 600 MG TAB PO SCH (09:54)
[2023-09-19] MEDS: dilTIAZem HCL 60 MG TAB PO SCH (09:56)
[2023-09-19] MEDS: ENOXAPARIN SOD 40 MG/0.4 ML SYRINGE SC SCH (09:56)
[2023-09-19] MEDS: NICOTINE 21MG/24 HR TOPICAL PATCH TD SCH (09:57)
[2023-09-19] MEDS: Ensure Enlive Vanilla 8oz Bottle PO SCH (09:58)
[2023-09-19 10:45] LABS: Urine Bacteria NONE SEEN /hpf (None Seen); Urine Blood 3+ /uL (Negative); Urine Clarity Clear (Clear); Urine Protein, UAD TRACE (Negative); Urine Urobilinogen Normal (Negative); Urine WBC 2 /hpf (0 - 3); Urine pH 7.5 (5.0-8.0)
[2023-09-19 10:49] LABS: Urine Color STRAW (Yellow)
[2023-09-19 12:20] VITALS: BP 119/76; PULSE 76; RESP 18; TEMP 98; O2SAT 96
[2023-09-19 14:51] VITALS: BP 117/66; PULSE 85; TEMP 36.7
== END 2023-09-19 15:15 | disposition home or self-care (01) | DRG 287 ==
LOC: EDBD 11:05 → ER 11:05 → TELE 14:29 → TELE-CENTR 21:53
PROVIDERS: ADMIT Internal Medicine; ATTEND Student in an Organized Health Care Education/Training Program
PROC: 4A023N7 Measurement of Cardiac Sampling and Pressure, Left Heart, Percutaneous Approach (ICD-10-PCS; principal; 2023-09-17)
PROC: B211YZZ Fluoroscopy of Multiple Coronary Arteries using Other Contrast (ICD-10-PCS; 2023-09-17)
PROC: B215YZZ Fluoroscopy of Left Heart using Other Contrast (ICD-10-PCS; 2023-09-17)
DX: I25.110 Atherosclerotic heart disease of native coronary artery with unstable angina pectoris (principal); I47.10 Supraventricular tachycardia, unspecified; I65.29 Occlusion and stenosis of unspecified carotid artery; I71.21 Aneurysm of the ascending aorta, without rupture; C61 Malignant neoplasm of prostate; E78.5 Hyperlipidemia, unspecified; F17.210 Nicotine dependence, cigarettes, uncomplicated; R55 Syncope and collapse; I95.9 Hypotension, unspecified; I45.81 Long QT syndrome; I71.40 Abdominal aortic aneurysm, without rupture, unspecified; Z79.899 Other long term (current) drug therapy; Z82.3 Family history of stroke; Z82.49 Family history of ischemic heart disease and other diseases of the circulatory system; Z83.3 Family history of diabetes mellitus; Z87.442 Personal history of urinary calculi; Z80.8 Family history of malignant neoplasm of other organs or systems; Z85.46 Personal history of malignant neoplasm of prostate; Z86.73 Personal history of transient ischemic attack (TIA), and cerebral infarction without residual deficits; Z86.79 Personal history of other diseases of the circulatory system
CPT/HCPCS: 36415; 70450; 70551; 71045; 78452; 80048; 80053; 81001; 82533; 82962; 83735; 83880; 84439; 84443; 84481; 84484; 85025; 85610; 85730; 86850; 86900; 86901; 87081; 93005; 93017; 93458; 93886; 95819; 99152; 99153; 99291; C1894; G0378; J0153; J2250; Q9967

== ENCOUNTER → 2023-09-28 | Outpatient (CLI) | payer OTHER ==
[2023-09-28 09:54] LABS: Urine WBC None Seen /hpf (0 - 3)
[2023-09-28 10:12] LABS: Basophils # (auto) 0 10 ^3/uL (0-0.2); Basophils % (auto) 0.8 % (0.0-2.0); Eosinophils # (auto) 0.3 10 ^3/uL (0-0.8); Eosinophils % (auto) 5.8 % (0.0-7.0); Hematocrit 41.7 % (41.0-53.0); Hemoglobin 14.7 g/dL (13.5-17.5); Lymphocytes # (auto) 1.1 10 ^3/uL (0.4-5.4); Lymphocytes % (auto) 25.4 % (10.0-50.0); Mean Corpuscular Hemoglobin 33.3 pg (28.0-32.0); Mean Corpuscular Hgb Conc. 35.3 g/dL (32.0-36.0); Mean Corpuscular Volume 94.5 fL (80.0-100.0); Monocytes # (auto) 0.5 10 ^3/uL (0-1.3); Neutrophils # (auto) 2.5 10 ^3/uL (1.6-8.6); Nucleated Red Blood Cells % 0.1 %; Red Blood Cells 4.42 10^6/uL (4.5-5.90); Red Cell Distribution Width 12.4 % (11.8-14.3); White Blood Cell 4.4 10^3/uL (4.4-10.8)
[2023-09-28 10:24] LABS: Triglycerides 46 mg/dL (< 150)
[2023-09-28 10:25] LABS: Alanine Aminotransferase 11 U/L (7-40); Albumin 4.3 g/dL (3.2-4.8); Alkaline Phosphatase 82 U/L (46-116); Anion Gap 4 (5-15); Aspartate Aminotransferase 16 U/L (13-40); BUN/Creatinine Ratio 23.8 (10.0-20.0); Blood Urea Nitrogen 19 mg/dL (9-23); CRP High Sensitivity 0.02 mg/dL (<1.0); Calcium 9.1 mg/dL (8.5-10.1); Carbon Dioxide 28 mmol/L (20-30); Chloride 110 mmol/L (98-107); Cholesterol 146 mg/dL (< 200); Glucose 96 mg/dL (74-106); HDL Cholesterol 62 mg/dL (40-59); LDL Cholesterol 73 mg/dL (< 100); Potassium 4.3 mmol/L (3.5-5.1); Sodium 142 mmol/L (136-145)
[2023-09-28 10:26] LABS: Bilirubin, Total 0.4 mg/dL (0.2-1.0); Total Protein 6.7 g/dL (5.7-8.2)
[2023-09-28 10:27] LABS: Free T4 (Free Thyroxine) 1.06 ng/dL (0.89-1.76)
[2023-09-28 10:28] LABS: Free T3 3.3 pg/mL (2.3-4.2)
[2023-09-28 10:35] LABS: Urine Bacteria NONE SEEN /hpf (None Seen); Urine Blood 2+ /uL (Negative); Urine Clarity Clear (Clear); Urine Color Yellow (Yellow); Urine Mucus FEW (None Seen); Urine Protein, UAD TRACE (Negative); Urine Urobilinogen Normal (Negative)
[2023-09-28 10:50] LABS: Magnesium 2.2 mg/dL (1.6-2.6)
[2023-09-28 11:18] LABS: Erythrocyte Sedimentation Rate 5 mm/hr (0-20)
== END | disposition home or self-care (01) ==
LOC: LAB 09:19
PROVIDERS: ATTEND Nurse Practitioner Gerontology
DX: Z00.01 Encounter for general adult medical examination with abnormal findings (principal)
CPT/HCPCS: 36415; 80053; 80061; 81001; 83036; 83735; 84439; 84443; 84481; 85025; 85652; 86141; 87086